=== PATIENT | female | born 1985 | race Caucasian/White ===

== ENCOUNTER 2024-04-22 14:25 | Emergency (ER) | payer SELFPAY ==
[~2024-04-22] VITALS: Ht 165.1 cm; Wt 80.1 kg
[2024-04-22] MEDS: HYDROcodone-ACET 10/325MG TAB PO ONE (15:55)
[2024-04-22] MEDS: DexAMETHasone SOD PHOS 10MG/1ML VIAL INJ IM ONE (15:56)
[2024-04-22] MEDS: KETOROLAC TROMETH 60MG/2ML VIAL IM ONE (15:57)
[2024-04-22 16:03] VITALS: BP 138/95; PULSE 91; RESP 18; TEMP 98.2; O2SAT 98
--- NOTE | 2024-04-22 16:22 | DVH ---
EXAM: XY CERVICAL SPINE 3V INDICATION: Cervical radiculopathy COMPARISON: None TECHNIQUE: 3 views of the cervical spine were obtained. Findings: There is no evidence of an acute fracture, spondylolysis, or spondylolisthesis. The vertebral body heights and disc spaces are well-maintained. No blastic or lytic lesions are appreciated. No radiopaque foreign bodies. No superficial soft tissue abnormalities. Impression: 1. No acute osseous abnormality.
[2024-04-22] MEDS ORDERED: GABA-1250 PO (16:36)
[2024-04-22] MEDS ORDERED: MELO15TA29 PO (16:36)
--- NOTE | 2024-04-22 16:36 | ED.PDOC ---
Musculoskeletal HPI Comments This patient is a pleasant but obese 30-year-old female who arrives to the ED today with complaints of left-sided neck and left arm numbness that began upon waking this morning. Patient denies any traumatic events. States she woke up this morning with arm numbness and tingling. Patient denies any fever nausea or vomiting. Patient denies any history of cervical spine or left arm concerns. Vital signs were stable at arrival. Chief Complaint: Upper Extremity Time Seen by MD: 15:04 Reviewed Notes: Nurses Notes Allergies: Coded Allergies: NO KNOWN ALLERGIES (Unverified , 04/22/24) Information Source: Patient Mode of Arrival: Ambulatory Location: Left Extremity Location: Arm Timing: Hours Prehospital treatment: None Severity: Moderate Able to Move Extremity: Yes Bear Weight: Fully Pain: Moderate Hand Dominance: Right Mechanism: Spontaneous Circumstances: Spontaneous Onset of Symptoms: Spontaneous Symptoms: Pain DVT Risk Factors: NONE Associated signs and symptoms: Arm pain Past Medical History PAST MEDICAL HISTORY: Denies Surgical History: Denies all surgeries LEARNING DEVELOPMENT SPECIALIST History: No Pertinent LEARNING DEVELOPMENT SPECIALIST History Family History Family History: Reviewed,noncontributory to illness, No family hx of Cancer, No family hx of DM, No family hx of Heart bola, No family hx of HTN, No family hx ofKidney bola, No family hx of Liver bola, No family hx of Lung bola, No family hx of Stroke Social History Smoker: Non-Smoker Alcohol: Denies ETOH Use Drugs: Denies Drug Use Lives In: Home Constitutional: denies: chills, diaphoresis, fatigue, fever, malaise, sweats, weakness, others EENTM: denies: blurred vision, double vision, ear bleeding, ear discharge, ear drainage, ear pain, ear ringing, eye pain, eye redness, hearing loss, mouth pain, mouth swelling, nasal discharge, nose bleeding, nose congestion, nose pain, photophobia, tearing, throat pain, throat swelling, voice changes, others Respiratory: denies: cough, hemoptysis, orthopnea, SOB at rest, shortness of breath, SOB with excertion, stridor, wheezing, others Cardiovascular: denies: chest pain, dizzy spells, diaphoresis, Dyspnea on exertion, edema, irregular heart beat, left arm pain, lightheadedness, palpitations, PND, syncope, others Gastrointestinal: denies: abdomen distended, abdominal pain, blood streaked bowels, constipated, diarrhea, dysphagia, difficulty swallowing, hematemesis, melena, nausea, poor appetite, poor fluid intake, rectal bleeding, rectal pain, vomiting, others Genitourinary: denies: abnormal vagina bleeding, burning, dyspareunia, dysuria, flank pain, frequency, hematuria, incontinence, pain, , vagina discharg e, urgency, others Neurological: denies: dizziness, fainting, headache, left sided numbness, left sided weakness, numbness, paresthesia, pre-existing deficit, right sided numbness, right sided weakness, seizure, speech problems, tingling, tremors, weakness, others Musculoskeletal: reports: neck pain, others (Left arm pain and numbness); denies: back pain, gout, joint pain, joint swelling, muscle pain, muscle stiffness Integumetry: denies: bruises, change in color, change in hair/nails, dryness, laceration, lesions, lumps, rash, wounds, others Allergic/Immunocompromised: denies: Difficulty Healing, Frequent Infections, Hives, Itching, others Hematologic/Lymphatic: denies: anemia, blood clots, easy bleeding, easy bruising, swollen glands, others Endocrine: denies: excessive hunger, excessive sweating, excessive thirst, excessive urination, flushing, intolerance to cold, intolerance to heat, unexplained weight gain, unexplained weight loss, others Psychiatric: denies: anxiety, bipolar disorder, depression, hopeless, panic disorder, schizophrenia, sleepless, suicidal, others Physical Exam General Appearance: Moderate Distress (Vodt-ah-sgysdies distress due to arm pain and numbness concerns), Normal HEENT: Normal ENT Inspection, Pharynx Normal, TMs Normal Neck: Other (Diffuse left-sided tenderness to palpation with [id number] hypertonicity appreciated. No step-offs noted. Minimal reduced range of motion.) Respiratory: Chest Non-Tender, Lungs Clear, No Accessory Muscle Use, No Respiratory Distress, Normal Breath Sounds Cardiovascular: No Edema, No JVD, No Murmur, No Gallop, Normal Peripheral Pulses, Regular Rate/Rhythm Breast Exam: Deferred Gastrointestinal: No Organomegaly, Non Tender, No Pulsatile Mass, Normal Bowel Sounds, Soft Genitalia: Deferred Pelvic: Deferred Rectal: Deferred Extremities: Other (Left arm evaluation was relatively unremarkable. No signs of trauma. No edema, erythema or ecchymosis. Significant reduced range of motion. Patient has patchy areas of pain as well as numbness. Distal neurovascularly intact.) Neurologic: Alert, No Motor Deficits, Normal Affect, Normal Mood, No Sensory Deficits Cerebellar Function: Normal Reflexes: NOT DONE Skin: Dry, Normal Color, Warm Lymphatic: No Adenopathy Was a procedure done? Was a procedure done?: No Differential Diagnosis EXT Differential Diagnosis: Other (Degenerative disc disease of the cervical spine, cervical muscle strain, cervical radiculopathy, left arm nerve impingement) X-Ray, Labs, Meds, VS Vital Signs Date Time Temp Pulse Resp B/P (MAP) Pulse Ox O2 Delivery O2 Flow Rate FiO2 04/22/24 16:03 91 18 98 Room Air 04/22/24 16:03 98.2 91 18 138/95 (109) 98 98.2 04/22/24 15:03 97.8 89 20 148/87 (107) 100 Current Medications Medications (Trade) Dose Ordered Sig/Deo Route Start Time Stop Time Status Last Admin Dexamethasone Sodium Phosphate (Decadron Injection) 10 mg ONCE ONCE IM 04/22/24 15:30 04/22/24 15:31 DC 04/22/24 15:56 Ketorolac Tromethamine (Toradol Injection) 30 mg ONCE ONCE IM 04/22/24 15:30 04/22/24 15:31 DC 04/22/24 15:57 Acetaminophen/ Hydrocodone Bitart (Martin 10/325MG Tab) 1 tab ONCE ONCE PO 04/22/24 15:30 04/22/24 15:31 DC 04/22/24 15:55 X-Ray, Labs, Meds, VS Comment All studies performed the ED were evaluated by me personally. Imaging studies were unremarkable for age degenerative disc disease or cervical fractures. It appears the patient is suffering from a palsy condition, probably due to the position of sleeping. Advised patient that symptoms will improve over the next few days. Time of 1ST Reevaluation: 16:34 Reevaluation 1ST: Improved Consultation: PCP Patient Education/Counseling: Diagnosis, Treatment Family Education/Counseling: Diagnosis, Treatment Departure 1 Departure Time of Disposition: 16:34 Impression: Primary Impression: Ulnar nerve impingement Disposition: 01 HOME / SELF CARE / HOMELESS Condition: Stable Additional Instructions: Advised patient utilize medication as needed for relief as well as ice therapy. This condition may take several days to weeks to completely resolve. Patient should follow up with the primary care provider for re-evaluation proximally 10 days. e-Prescriptions Gabapentin (Gabapentin) 300 Mg Cap 1 CAP PO Q6HP PRN, #20 CAP 0 Refills Prov: ALYCIA MILLER PAC 04/22/24 Meloxicam (Meloxicam) 15 Mg Tab 1 TAB PO DAILY for 10 Days, #10 TAB 0 Refills Prov: ALYCIA MILLER PAC 04/22/24 Discharged With: Self, Friend Critical Care Note Critical Care Time?: No Stability Stability form required: No Heart Score Heart Score: Heart Score Response (Comments) Value History N/A 0 EKG N/A 0 Age N/A 0 Risk Factors N/A 0 Troponin N/A 0 Total 0 ALYCIA MILLER PAC Apr 22, 2024 16:36
== END 2024-04-22 16:49 | disposition home or self-care (01) ==
LOC: ER 14:25
DX: G56.20 Lesion of ulnar nerve, unspecified upper limb (principal); M79.632 Pain in left forearm; E66.9 Obesity, unspecified
CPT/HCPCS: 72040; 96372; 99284; J1100; J1885